=== PATIENT | male | born 1955 | race Hispanic/Latino ===

== ENCOUNTER 2019-06-13 18:17 | Inpatient (IN) | payer SELFPAY ==
[2019-06-13] MEDS ORDERED: ASPIRIN PR ONE (18:33)
[2019-06-13] MEDS ORDERED: NITRO-BID 2% TP ONE (18:34)
[2019-06-13] MEDS ORDERED: SODIUM CHLORIDE FLUSH SYRINGE 10 ML IV PRN (18:36)
[2019-06-13] MEDS ORDERED: PROVENTIL IH PRN (18:36)
[2019-06-13 18:38] LABS: Hematocrit 34.1 % (35.5-45.6); Hemoglobin 10.8 gm/dl (11.8-15.2); Mean Corpuscular HGB Conc 32 % (32-34); Mean Corpuscular Volume 72 fl (84-94); Red Blood Count 4.74 M/mm3 (3.65-5.03)
--- NOTE | 2019-06-13 18:39 | History and Physical Report ---
History of Present Illness Chief complaint: Unresponsive History of present illness: 64 YO Male with unknown PMH presents to ED for evaluation. Pt found down and unresponsive by a family friend who came to the patients home to check on him. Pt was lying on the floor in his home and was unresponsive. EMS notified, and u paresh arrival the patient was found to be unresponsive with EKG changes consistent with STEMI. A code STEMI was called and the patient transported to [facility]. Pt seen and evaluated in ED and found to have Acute Respiratory Failure and was unable to protect his airway. Pt intubated and the Cardiology team was consulted and the patient was taken urgently to oven laborer. No further history obtainable. CT Head, CT Chest, CBC, CMP pending at time of admission. Pt admitted to ICU. No further history obtainable. No prior admission for review. No medication listed for reconciliation at time of admission. Upon return of initial labwork the patient was found to have Qsofa sore of 7 consistent with Sepsis, ARF, Acidosis, Anemia, as well as Encephalopathy. Pulmonary team consulted in ED, nephrology consulted in ED. Past History Past Medical History: No medical history, other (UTO) Past Surgical History: No surgical history, Other (UTO) Social history: no significant social history, other (UTO) Family history: no significant family history, other (UTO) Medications and Allergies Allergies Allergy/AdvReac Type Severity Reaction Status Date / Time Unable to Assess Allergy Unverified 06/13/19 18:37 Review of Systems ROS unobtainable: due to endotracheal tube, due to mental status Exam - Constitutional Vitals: Temp Pulse Resp BP Pulse Ox 98.7 F 107 H 27 H 153/104 100 06/13/19 18:17 06/13/19 18:17 06/13/19 18:17 06/13/19 18:17 06/13/19 18:17 General appearance: Present: severe distress - EENT Eyes: Present: miosis - Neck Neck: Present: supple, normal ROM - Respiratory Respiratory: bilateral: diminished, rhonchi - Cardiovascular Heart Sounds: Present: S1 & S2. Absent: rub, click - Extremities Extremities: pulses symmetrical, No edema Peripheral Pulses: within normal limits - Abdominal General gastrointestinal: Present: soft, non-tender, non-distended, normal bowel sounds Male genitourinary: Present: normal - Integumentary Integumentary: Present: clear, dry, clammy, decreased turgor - Musculoskeletal Musculoskeletal: generalized weakness - Psychiatric Psychiatric: no appropriate mood/affect, no intact judgment & insight, no memory intact - Neurologic Neurologic: moves all extremities, no gait normal Results - Labs CBC & Chem 7: 06/13/19 Unknown 06/13/19 Unknown Assessment and Plan - Patient Problems (1) Sepsis Current Visit: Yes Status: Acute Qualifiers: Sepsis type: sepsis due to unspecified organism Qualified Code(s): A41.9 - Sepsis, unspecified organism Plan to address problem: Admit to ICU, Pt initiated on Sepsis protocol: IVF resuscitation therapy, Iv antibiotic therapy, blood cultures, urinalysis, CBC, CMP, chest x ray, monito uop q shift, The high probability of a clinically significant, sudden or life threatening deterioration of the [neuro, respiratory, cardiac, renal] system(s) required my full and direct attention, intervention and personal management. The aggregate critical care time was [65] minutes. This time is in addition to time spent performing reported procedures but includes the following: [x] Data Review and interpretation [x] Patient assessment and monitoring of vital signs [x] Documentation [x] Medication orders and management (2) Acute respiratory failure Current Visit: Yes Status: Acute Qualifiers: Respiratory failure complication: hypoxia Qualified Code(s): J96.01 - Acute respiratory failure with hypoxia Plan to address problem: Admit to ICU, ABG, CTA chest, chest x ray, (3) Encephalopathy Current Visit: Yes Status: Acute Plan to address problem: CT head, neuro checks, supportive care, (4) STEMI (ST elevation myocardial infarction) Current Visit: Yes Status: Acute Plan to address problem: Cardiology consulted, Pt taken urgently to oven laborer for intervention. (5) Acidosis Current Visit: Yes Status: Acute Plan to address problem: IVF resuscitation therapy,IV bicarbonate therapy, serial lactic acid, repeat bmp. (6) ARF (acute renal failure) with tubular necrosis Current Visit: Yes Status: Acute Plan to address problem: IVF resuscitation therapy, nephrology consulted in ED (7) Rhabdomyolysis Current Visit: Yes Status: Acute Qualifiers: Encounter type: initial encounter Plan to address problem: IVF resuscitation therapy, IV bicarbonate, repeat bmp, monitor serum creatnine, nephrology consulted, repeat CK (8) DVT prophylaxis Current Visit: Yes Status: Acute Plan to address problem: SCD to BLE while in bed, prophylactic lovenox
--- NOTE | 2019-06-13 18:40 | Emergency Department Report ---
HPI - General Time Seen by Provider: 06/13/19 18:22 - HPI HPI: Room 20 The patient is 64-year-old male presenting with a chief complaint of unresponsiveness. Per EMS the last time anyone had seen the patient is normal self was 2 days ago. A friend came over to check on the patient found him unresponsive on the floor. EMS sent and EKG prior to their arrival which showed ST elevation inferiorly and laterally. This EKG was transmitted to the ecological modeler Dr Yanez prior to arrival and a code STEMI was called. Upon arrival to the ED the patient is grossly obtunded without a gag reflex so the decision to intubate using RSI was made Location: [See above] Duration: [See above] Quality: [See above] Severity: [See above] Modifying factors: [see above] Context: [see above] Mode of transportation: [not driving] ED Past Medical Hx - Past Medical History Previous Medical History?: No - Surgical History Past Surgical History?: No - Family History Family history: no significant - Social History Smoking Status: Unknown if ever smoked ED Review of Systems ROS: Stated complaint: UNRESPONSIVE Other details as noted in HPI Comment: Unobtainable due to pts medical conditions Physical Exam - Physical Exam Vital Signs: Vital Signs 06/13/19 18:17 Temperature 98.7 F Pulse Rate 107 H Respiratory 27 H Rate Blood Pressure 153/104 [Right] O2 Sat by Pulse 100 Oximetry Physical Exam: GENERAL: The patient is well-developed well-nourished male lying on stretcher unresponsive. [] HEENT: Normocephalic. Atraumatic. Extraocular motions are intact. Patient has dry mucous membranes. NECK: Supple. Subacute-appearing healing wound to the left side of the neck CHEST/LUNGS: Clear to auscultation. There is no respiratory distress noted. HEART/CARDIOVASCULAR: Regular. There is no tachycardia. There is no gallop rub or murmur. ABDOMEN: Abdomen is soft, nontender. Patient has normal bowel sounds. There is no abdominal distention. SKIN: There is no rash. There is no edema. There is no diaphoresis. NEURO: The patient is unresponsive MUSCULOSKELETAL: There is no evidence of acute injury. ED Course Vital Signs 06/13/19 18:17 Temperature 98.7 F Pulse Rate 107 H Respiratory 27 H Rate Blood Pressure 153/104 [Right] O2 Sat by Pulse 100 Oximetry - Consultations Consultation #1: 06/13/19 18:12 EKG sent to and discussed with the ecological modeler Dr Beau BROWNE Medical Decision Making - Lab Data Result diagrams: 06/13/19 Unknown 06/13/19 Unknown - EKG Data -: EKG Interpreted by Me EKG shows normal: sinus rhythm Rate: normal - EKG Data When compared to previous EKG there are: previous EKG unavailable Interpretation: acute AK (ST elevation in leads 2, 3) - Radiology Data Radiology results: image reviewed (CT head, chest x-ray) interpreted by me: Chest x-ray- ET tube in appropriate position. No focal infiltrates, no pneumothorax - Differential Diagnosis STEMI, ICH Critical care attestation.: If time is entered above; I have spent that time in minutes in the direct care of this critically ill patient, excluding procedure time. ED Disposition Clinical Impression: STEMI (ST elevation myocardial infarction), Altered mental status Disposition: DC-[id number] OP ADMIT IP TO THIS HOSP Is pt being admited?: Yes Does the pt Need Aspirin: Yes Condition: Serious Referrals: TAMMI SCHULTE MD [Primary Care Provider] - 3-5 Days
[2019-06-13] MEDS ORDERED: VASELINE LIP THERAPY TP PRN (18:42)
[2019-06-13] MEDS ORDERED: ARTIFICIAL TEARS OPHTH OINT OU PRN (18:42)
[2019-06-13] MEDS ORDERED: VERSED IV PRN (18:42)
[2019-06-13 18:44] LABS: Red Cell Distribution Width 20.9 % (13.2-15.2)
[2019-06-13] MEDS ORDERED: CALAN ONE (18:47)
[2019-06-13] MEDS ORDERED: SUBLIMAZE ONE (18:47)
[2019-06-13] MEDS ORDERED: HEPARIN 10,000 UNITS/10 ML ONE (18:47)
[2019-06-13] MEDS ORDERED: HEPARIN/NS 5000 UNIT/500ML(CATH LAB) 1,000 ML IR ONE (18:47)
[2019-06-13] MEDS ORDERED: VERSED ONE (18:47)
[2019-06-13] MEDS ORDERED: XYLOCAINE 2% INFILTRATI ONE (18:47)
[2019-06-13 18:48] LABS: Partial Thromboplastin Time 33.6 Sec. (24.2-36.6)
[2019-06-13] MEDS ORDERED: NACL 0.9% 500 ML 500 ML ONE (18:48)
[2019-06-13] MEDS ORDERED: NITROGLYCERIN SYRINGE 3 ML ONE (18:48)
[2019-06-13] MEDS ORDERED: HEPARIN ONE (18:50)
[2019-06-13 18:53] LABS: INR 1.09 (0.87-1.13)
[2019-06-13] MEDS ORDERED: VERSED IV NR ×2 (19:00)
[2019-06-13] MEDS ORDERED: HEPARIN 10,000 UNITS/10 ML IV ONE (19:00)
[2019-06-13] MEDS ORDERED: MIDAZOLAM 100 MG in NACL 0.9% 80 ML IV SCH (19:00)
--- NOTE | 2019-06-13 19:00 | XRay Report ---
CHEST 1 VIEW 06/13/2019 6:34 PM INDICATION / CLINICAL INFORMATION: unresponsive, status post intubation. COMPARISON: None available. FINDINGS: SUPPORT DEVICES: Endotracheal tube has been placed with tip 6.5 cm above the yosef in expected posit ion. HEART / MEDIASTINUM: No significant abnormality. LUNGS / PLEURA: No significant pulmonary or pleural abnormality. No pneumothorax. ADDITIONAL FINDINGS: Defibrillator pad over the upper right hemithorax. IMPRESSION: 1. Endotracheal tube in expected position. Signer Name: Ahmet Jane MD Signed: 06/13/2019 6:55 PM Workstation Name: [id number]
--- NOTE | 2019-06-13 19:05 | Cat Scan Report ---
CT HEAD WITHOUT CONTRAST INDICATION / CLINICAL INFORMATION: AMS. Respiratory failure. Intubated patient. TECHNIQUE: All CT scans at this location are performed using CT dose reduction for ALARA by means of automated e xposure control. COMPARISON: None available. FINDINGS: HEMORRHAGE: A small (7 mm diameter) area of slightly increased attenuation is observed in the inferio r aspect of the right occipital lobe. (Series 2 image 25) This could represent a small parenchymal h emorrhage. A second, smaller (6 mm diameter) area of increased attenuation is seen in the cortex and subcortical white matter of the left frontal lobe approaching the vertex. (Series 2 image 57). No oth er areas of intracranial hemorrhage are identified. There is no indication of subarachnoid hemorrhage . No extra-axial fluid collections are identified. EXTRA-AXIAL SPACES: Cortical sulci, sylvian fissures and basilar cisterns have an unremarkable appear ance. VENTRICULAR SYSTEM: The ventricular system is of normal size and configuration. CEREBRAL PARENCHYMA: No additional areas of abnormal brain parenchymal attenuation are identified. Th ere is no indication of recent infarction. MIDLINE SHIFT OR HERNIATION: There is no mass effect. CEREBELLUM / BRAINSTEM: Brainstem and cerebellum have an unremarkable appearance. INTRACRANIAL VESSELS:No abnormalities are identified on this noncontrast head CT. ORBITS: visualized portions of the orbits have an unremarkable appearance. SOFT TISSUES of HEAD: No significant abnormality. CALVARIUM: Evaluation of bone windows reveals no abnormalities. PARANASAL SINUSES / MASTOID AIR CELLS: Paranasal sinuses are free from inflammatory mucosal disease. Mastoid air cells are normally pneumatized. IMPRESSION: 1. 2 small foci of increased attenuation are identified. These are located in the right occipital lob e and left frontal lobe where small parenchymal hemorrhages are suspected. Is there a history of head trauma 2. No additional abnormalities are identified on head CT without contrast. Signer Name: Danial Dhaliwal MD Signed: 06/13/2019 7:00 PM Workstation Name: [id number]
[2019-06-13] MEDS ORDERED: QUELICIN IV ONE (19:12)
[2019-06-13] MEDS ORDERED: XYLOCAINE CARDIAC IV ONE ×3 (19:13→22:48)
[2019-06-13] MEDS ORDERED: ADRENALIN ONE (19:16)
[2019-06-13] MEDS ORDERED: NACL 0.9% 1000 ML 0 ML ONE (19:16)
[2019-06-13] MEDS ORDERED: ATROPINE 0.1% (CARDIAC) ONE (19:16)
[2019-06-13] MEDS ORDERED: PHENYLEPHRINE/NS Syringe 1,000 MCG/10 ML IV ONE (19:16)
[2019-06-13] MEDS ORDERED: INTROPIN DRIP 800 MG/D5W 250 ML 800 MG/250 ML BAG IV ONE (19:18)
[2019-06-13 19:20] LABS: Basophils % (Manual) 0 % (0.0-1.8); Eosinophils % (Manual) 0 % (0.0-4.3); Total Cells Counted 100
[2019-06-13 19:21] LABS: Platelet Estimate Consistent w Auto
[2019-06-13 19:22] LABS: Anisocytosis 1+; Large Platelets 1+; Poikilocytosis 1+; Target Cells 1+; Toxic Vacuolation 1+
[2019-06-13 19:24] LABS: Chol/HDL Ratio 7.18 %
[2019-06-13 19:33] LABS: Platelet Count 54 K/mm3 (140-440)
[2019-06-13] MEDS ORDERED: NACL 0.9% 1000 ML IV ONE (19:35)
[2019-06-13] MEDS: INTROPIN DRIP 800 MG/D5W 250 ML 800 MG/250 ML BAG IV SCH (20:00)
[2019-06-13] MEDS ORDERED: VANCOMYCIN PHARMACY TO DOSE IV SCH (20:00)
[2019-06-13] MEDS ORDERED: VANCOMYCIN 1,500 MG in NACL 0.9% 500 ML 500 ML IV ONE (21:00)
--- NOTE | 2019-06-13 21:32 | Cardiac Catherization Report ---
CARDIAC CATH Please see my consult for details regarding indication. PROCEDURE IN DETAIL: The patient was brought to the catheterization lab in an urgent fashion. He is intubated and sedated, had a head CT, which preliminary was read as normal. Labs are pending. He is prepped and draped in sterile fashion. An 8 mL of 2% lidocaine used to anesthetize the right groin. A standard 6-Colombian sheath used to cannulate the right common femoral artery via modified Seldinger technique. All exchanges performed to exchange a J-tip guidewire. A JL3.5 catheter used to engage the left main. No dampening or ventricularization. Cineangiography performed in all projections. JR4 catheter was used to cross the aortic valve under fluoroscopic guidance. Left ventriculography was performed in 30 RUEDA and 30 AVELINA projections via hand injections. Catheter flushed. Manual pullback performed with continuous pressure monitoring. Catheter used to engage the right coronary. No dampening or ventricularization. Cineangiography performed in all projections. Catheter removed from the body of wire, sheath removed. Manual pressure used to achieve hemostasis. DATA: Aortic pressure is 100/70, LV pressure is 100, EDP of 15 mmHg, normal sinus rhythm throughout the procedure. CORONARY ANATOMY: Right dominant system. Left ventriculography reveals preserved ejection estimated ejection fraction of 65%. Right coronary is a moderate sized vessel, courses AV groove, distally bifurcates in the posterior and posterolateral branches. No discrete stenoses identified. Left main without significant disease, bifurcates left anterior descending and left circumflex. LAD is a moderate sized vessel, courses anterior intergroove, wraps around the apex, no significant disease. Left circumflex is a moderate sized vessel, courses AV groove. No significant disease. After the cath were notified that the radiologist overread the head CT, which revealed questionable small intracranial hemorrhage. No heparin is given here in the energy systems laboratory director. Sheath was pulled. The patient from a cardiac perspective is stable in sinus rhythm. LAUREN 3 flow throughout the coronary system without obstructive disease and preserved left ventricular systolic performance. CONCLUSIONS: 1. No angiographic evidence of significant epicardial coronary disease in this right dominant system with LAUREN 3 flow throughout the coronary tree. 2. Normal preserved left ventricular systolic performance, estimated ejection fraction of 60-65%. 3. No evidence of aortic stenosis. 4. Normal LVEDP. At this point, sheath was pulled. The patient is clinically stable. Labs reviewed. The patient is also found to have mild anemia and a creatinine of 4, minimal contrast use. Discussed with Dr. Floyd. Hygiene Assistant will be consulted. Respiratory rate is here throughout. He is critically ill. He will need Neurology consultation as well given head CT findings. Also this followed up with Dr. Childress in the Emergency Room. No family is available here. We will follow along with primary team. JOB# [id number] SBM/NTS
[2019-06-13] MEDS ORDERED: PEPCID IV SCH (22:00)
[2019-06-13] MEDS ORDERED: VERSED IV ONE (22:48)
[2019-06-13] MEDS ORDERED: QUELICIN ONE (22:48)
--- NOTE | 2019-06-13 23:24 | Event Note ---
Date: 06/13/19 code Blue Initial rhythm PEA, ACLS protocol initiated There was ROSC He is hypotensive, start dopamine drip Repeat labs reviewed, increase in lactic acid Fluid bolus, increase IV fluid rate, start Zosyn CT abdomen and pelvis was not obtained because the patient has been on stable
[2019-06-13 23:31] LABS: Mean Corpuscular HGB Conc 30 % (32-34); Mean Corpuscular Volume 76 fl (84-94); Red Blood Count 4.72 M/mm3 (3.65-5.03)
[2019-06-14 00:01] LABS: Calcium 7.8 mg/dL (8.4-10.2)
[2019-06-14 00:15] LABS: Hematocrit 35.8 % (35.5-45.6); Hemoglobin 10.7 gm/dl (11.8-15.2); Platelet Count 57 K/mm3 (140-440); Red Cell Distribution Width 21.3 % (13.2-15.2)
[2019-06-14] MEDS: LEVOPHED DRIP 4 MG/NS 250 ML 4 MG/250 ML BAG IV SCH ×5 (00:15→10:00)
--- NOTE | 2019-06-14 00:21 | Event Note ---
ED Radha central line I was asked by the hospitalist Dr. Neeru Tomas to place a central line for vasopressor support [facility] central line note Indication: Vasopressor support Location: Femoral The area of line placement was thoroughly prepared with chlorhexidine then draped using sterile technique. The area was locally anesthetized with lidocaine 1% 3 mL A triple lumen central venous catheter was placed using standard Seldinger technique. There was return of dark nonpulsatile blood from all ports. The catheter was secured in place using adhesive A sterile dressing was placed over the line. The patient tolerated the procedure [well] Complications: First attempt resulted in arterial puncture. Needle was removed and pressure held until hemostatic
[2019-06-14] MEDS: SODIUM CHLORIDE FLUSH SYRINGE 10 ML IV SCH ×2 (00:47→10:00)
[2019-06-14] MEDS ORDERED: NACL 0.9% 1000 ML 2,000 ML IV ONE (01:49)
[2019-06-14] MEDS ORDERED: Vasostrict 20 UNIT in NACL 0.9% 100 ML IV SCH (02:00)
[2019-06-14] MEDS: ZOSYN/NS 2.25 GM/50ML 2.25 GM/50 ML BAG IV SCH ×2 (02:37→10:00)
--- NOTE | 2019-06-14 02:46 | XRay Report ---
CHEST 1 VIEW 06/14/2019 1:58 AM INDICATION / CLINICAL INFORMATION: follow up respiratory failure. COMPARISON: One view of the chest from 06/13/2019. FINDINGS: SUPPORT DEVICES: Stable positioning of the ET tube. HEART / MEDIASTINUM: No significant abnormality. LUNGS / PLEURA: No significant pulmonary or pleural abnormality. No pneumothorax. ADDITIONAL FINDINGS: No significant additional findings. IMPRESSION: No acute findings. Signer Name: Jose Denis MD Signed: 06/14/2019 2:41 AM Workstation Name: [id number]
--- NOTE | 2019-06-14 03:31 | Consultation ---
CARDIOLOGY CONSULTATION REFERRING PHYSICIAN: Dr. Childress in the Emergency Room. REASON FOR CONSULTATION: Advised to bring unresponsive patient with inferolateral ST elevation STEMI protocol. FURTHER INDICATION: The patient is a 64-year-old gentleman who apparently earlier today was found down by his friends, unclear downtime; however, they saw warm food was next to him, suspected it was very recent, questionable minutes. CPR was undertaken and he with return of spontaneous circulation intubated in the Emergency Room. A head CT initially was read as normal. Inferolateral ST elevation. At least 30 minutes of critical care time were spent coordinating cardiac cath plan with CT and so forth. No known medical history, no family with him. PHYSICAL EXAMINATION: VITAL SIGNS: Heart rates in the 95-105 range, sinus tachycardia, again inferolateral ST elevation with minimal reciprocal changes, blood pressure is 110/70, he is afebrile, saturations are 100. Chest x-ray shows a placed ET tube. EKG is aforementioned. Labs are pending. NEUROLOGIC: He is unresponsive, neurologically. HEENT: Sclerae are anicteric. LUNGS: Clear. CARDIOVASCULAR: S1, S2. ABDOMEN: Soft, nontender, nondistended. Normoactive bowel sounds in 4 quadrants. EXTREMITIES: No cyanosis, clubbing, edema. Good peripheral pulses. SKIN: Dry, intact. No rashes. DATA: EKG is aforementioned. Head CT initially was read by the ER physician as unremarkable. Chest x-ray as aforementioned. Labs pending. ASSESSMENT AND PLAN: In summary, this is a 64-year-old gentleman: Found down, return of spontaneous circulation with questionable/probable inferolateral ST elevation without reciprocal changes. STEMI protocol was initiated. The patient to the labor relations director in urgent fashion. Given aspirin per rectum by ER physician. Further plans continued on cath course. JOB# [id number] SBM/NTS
[2019-06-14 03:33] LABS: Band Neutrophils # (Manual) 0.7 K/mm3; Basophils % (Manual) 0 % (0.0-1.8); Eosinophils % (Manual) 0 % (0.0-4.3); Total Cells Counted 100
[2019-06-14 03:34] LABS: Crenated RBC 1+
[2019-06-14 03:56] LABS: Hypochromasia 1+
[2019-06-14 03:57] LABS: Anisocytosis 1+
[2019-06-14 03:58] LABS: Large Platelets 1+
[2019-06-14 03:59] LABS: Platelet Estimate Consistent w Auto
[2019-06-14] MEDS: NACL 0.9% 1000 ML 1,000 ML IV SCH ×2 (04:00→08:00)
[2019-06-14] MEDS: INTROPIN DRIP 800 MG/D5W 250 ML 800 MG/250 ML BAG IV SCH (06:13)
[2019-06-14] MEDS ORDERED: SODIUM BICARBONATE 150 MEQ in D5W 1,000 ML IV SCH (07:30)
[2019-06-14] MEDS ORDERED: NACL 0.9% 500 ML 500 ML IV PRN (09:00)
--- NOTE | 2019-06-14 09:59 | Progress Note ---
Assessment and Plan Pt found down and unresponsive by a family friend. EMS notified, and upon arrival the patient was found to be unresponsive with EKG changes consistent with STEMI. Pt s/p emergent LHC yesterday evening which showed normal coronaries and normal EF 60-65%. Head CT, initially read as normal, shows 2 areas of suspected hemorrhage. He suffered PEA arrest overnight with eventual ROSC obtained. F/u echo and EKG. Cont supportive measures. Wean vasopressors as tolerated. Await neurology recs. Overall poor prognosis. The patient has been seen in conjunction with Dr. Beal who agrees with the assessment and plan of care. - Patient Problems (1) Cardiopulmonary arrest Current Visit: Yes Status: Acute (2) Hemorrhagic cerebrovascular accident (CVA) Current Visit: Yes Status: Acute (3) Sepsis Current Visit: Yes Status: Suspected Qualifiers: Sepsis type: sepsis due to unspecified organism Qualified Code(s): A41.9 - Sepsis, unspecified organism (4) Acidosis Current Visit: Yes Status: Acute (5) Hypotension Current Visit: Yes Status: Acute (6) Abnormal ECG Current Visit: Yes Status: Acute (7) Acute renal failure Current Visit: Yes Status: Acute (8) Rhabdomyolysis Current Visit: Yes Status: Acute Qualifiers: Encounter type: initial encounter (9) Thrombocytopenia Current Visit: Yes Status: Acute (10) Elevated troponin Current Visit: Yes Status: Acute (11) Normal coronary arteries Current Visit: Yes Status: Chronic Subjective Date of service: 06/14/19 Principal diagnosis: cardiac arrest; CVA Interval history: pt remains intubated, nonresponsive. on dopamine and levophed gtts. Objective Last Vital Signs Temp 95.9 F L 06/14/19 08:00 Pulse 86 06/14/19 09:45 Resp 30 H 06/14/19 09:45 BP 151/103 06/14/19 09:45 Pulse Ox 29 L 06/14/19 08:31 - Physical Examination General: Other (intubated, unresponsive) Cardiac: Positive: Reg Rate and Rhythm, S1/S2 Lungs: Positive: Decreased Breath Sounds, Oxygen, Ventilated Respirations Neuro: Positive: Other (intubated, unresponsive) - Labs and Meds Cardiac Enzymes 06/13/19 Range/Units Unknown CK-MB (CK-2) 26.0 H (0.0-4.0) ng/mL Coagulation 06/13/19 Range/Units Unknown PT 13.8 (12.2-14.9) Sec. INR 1.09 (0.87-1.13) APTT 33.6 (24.2-36.6) Sec. Lipids 06/13/19 Range/Units Unknown Triglycerides 234 H (2-149) mg/dL Cholesterol 79 (50-199) mg/dL HDL Cholesterol 11 L (40-59) mg/dL Cholesterol/HDL Ratio 7.18 % CBC 06/13/19 06/13/19 Range/Units 23:22 Unknown WBC 14.8 H 12.2 H (4.5-11.0) K/mm3 RBC 4.72 4.74 (3.65-5.03) M/mm3 Hgb 10.7 L 10.8 L (11.8-15.2) gm/dl Hct 35.8 34.1 L (35.5-45.6) % Plt Count 57 L 54 L (140-440) K/mm3 Comprehensive Metabolic Panel 06/13/19 06/13/19 Range/Units 23:22 Unknown Sodium 139 133 L (137-145) mmol/L Potassium 5.7 H D 3.7 (3.6-5.0) mmol/L Chloride 97.1 L 96.2 L (98-107) mmol/L Carbon Dioxide 15 L 16 L (22-30) mmol/L BUN 83 H 77 H (9-20) mg/dL Creatinine 4.7 H 4.0 H (0.8-1.5) mg/dL Glucose 94 151 H (75-100) mg/dL Calcium 7.8 L 8.0 L (8.4-10.2) mg/dL - Imaging and Cardiology EKG: report reviewed, image reviewed Echo: pending Cardiac cath: report reviewed - Telemetry EKG Rhythm: Sinus Rhythm
[2019-06-14] MEDS ORDERED: PEPCID IV SCH (10:00)
--- NOTE | 2019-06-14 10:23 | Progress Note ---
Assessment and Plan Assessment and plan: Per Admission documentation: 64 YO Male with unknown PMH presents to ED for evaluation. Pt found down and unresponsive by a family friend who came to the patients home to check on him. Pt was lying on the floor in his home and was unresponsive. last time he was seen was 2 days ago. Per story of the friend, patient has been sick for over 10days but refused to go to the doctor and last time they saw the patient was 2 days ago. EMS notified, and upon arrival the patient was found to be unresponsive with EKG changes consistent with STEMI. A code STEMI was called and the patient transported to [facility]. Pt seen and evaluated in ED and found to have Acute Respiratory Failure and was unable to protect his airway. Pt intubated and the Cardiology team was consulted and the patient was taken urgently to [facility]. No further history obtainable. CT Head, CT Chest, CBC, CMP pending at time of admission. Pt admitted to ICU. No further history obtainable. No prior admission for review. No medication listed for reconciliation at time of admission. Upon return of initial labwork the patient was found to have Qsofa sore of 7 consistent with Sepsis, ARF, Acidosis, Anemia, as well as Encephalopathy. Pulmonary team consulted in ED, nephrology consulted in ED. EKG changes consistent with STEMI. Pt s/p emergent LHC yesterday evening which showed normal coronaries and normal EF 60-65%. Head CT, initially read as normal, shows 2 areas of suspected Paranchymal hemorrhage. He suffered PEA arrest overnight with eventual ROSC obtained. CT Head 1. 2 small foci of increased attenuation are identified. These are located in the right occipital lobe and left frontal lobe where small par enchymal hemorrhages are suspected. Is there a history of head trauma 2. No additional abnormalities are identified on head CT without contrast. Since admission the patients lactic acid has worsened, with worsening metabolic acidosis, he has become more hypothermic requiring rewarming. Severe Sepsis with Shock Acute Metabolic Encephalopathy Acute CVA Acute Respiratory failure Right occiptal lobe and left frontal lobe Parachymal hemorrhages Acute Metabolic Acidosis with lactic acidemia Rahabdomylysis Thrombocytopenia Plan Supportive care Give [address] [place] for better I/O in critially ill patient with no noted urine output yet Continue Sodium Bicarb drip as started Change Abx to cefepime and vancomycin-Pharmacy to dose Attempt to reach family ID/NEUROLOGY CONSULT Discussed with ID AND Critical care physician Poor Prognosis The high probability of a clinically significant, sudden or life threatening deterioration of the [neuro, respiratory, cardiac, renal] system(s) required my full and direct attention, intervention and personal management. The aggregate critical care time was [65] minutes. This time is in addition to time spent performing reported procedures but includes the following: [x] Data Review and interpretation [x] Patient assessment and monitoring of vital signs [x] Documentation [x] Medication orders and management Hospitalist Physical - Constitutional Vitals: Temp Pulse Resp BP Pulse Ox 95.9 F L 86 30 H 151/103 29 L 06/14/19 08:00 06/14/19 09:45 06/14/19 09:45 06/14/19 09:45 06/14/19 08:31 General appearance: Present: severe distress Results - Labs CBC & Chem 7: 06/13/19 Unknown 06/13/19 Unknown Labs: Laboratory Last Values WBC 12.2 K/mm3 (4.5-11.0) H 06/13/19 Unknown RBC 4.74 M/mm3 (3.65-5.03) 06/13/19 Unknown Hgb 10.8 gm/dl (11.8-15.2) L 06/13/19 Unknown Hct 34.1 % (35.5-45.6) L 06/13/19 Unknown MCV 72 fl (84-94) L 06/13/19 Unknown MCH 23 pg (28-32) L 06/13/19 Unknown MCHC 32 % (32-34) 06/13/19 Unknown RDW 20.9 % (13.2-15.2) H 06/13/19 Unknown Plt Count 54 K/mm3 (140-440) L 06/13/19 Unknown Add Manual Diff Complete 06/13/19 Unknown Total Counted 100 06/13/19 Unknown Seg Neuts % (Manual) 74.0 % (40.0-70.0) H 06/13/19 Unknown 0 % 06/13/19 Unknown 22.0 % (13.4-35.0) 06/13/19 Unknown Reactive Lymphs % (Man) 0 % 06/13/19 Unknown 4.0 % (0.0-7.3) 06/13/19 Unknown 0 % (0.0-4.3) 06/13/19 Unknown 0 % (0.0-1.8) 06/13/19 Unknown 0 % 06/13/19 Unknown 0 % 06/13/19 Unknown 0 % 06/13/19 Unknown 0 % 06/13/19 Unknown Nucleated RBC % Not Reportable 06/13/19 Unknown Seg Neutrophils # Man 9.0 K/mm3 (1.8-7.7) H 06/13/19 Unknown Band Neutrophils # 0.0 K/mm3 06/13/19 Unknown 2.7 K/mm3 (1.2-5.4) 06/13/19 Unknown Abs React Lymphs (Man) 0.0 K/mm3 06/13/19 Unknown 0.5 K/mm3 (0.0-0.8) 06/13/19 Unknown 0.0 K/mm3 (0.0-0.4) 06/13/19 Unknown 0.0 K/mm3 (0.0-0.1) 06/13/19 Unknown 0.0 K/mm3 06/13/19 Unknown 0.0 K/mm3 06/13/19 Unknown 0.0 K/mm3 06/13/19 Unknown Blast Cells # 0.0 K/mm3 06/13/19 Unknown WBC Morphology Not Reportable 06/13/19 Unknown Hypersegmented Neuts Not Reportable 06/13/19 Unknown Hyposegmented Neuts Not Reportable 06/13/19 Unknown Hypogranular Neuts Not Reportable 06/13/19 Unknown Not Reportable 06/13/19 Unknown Not Reportable 06/13/19 Unknown 1+ 06/13/19 Unknown Not Reportable 06/13/19 Unknown Not Reportable 06/13/19 Unknown Not Reportable 06/13/19 Unknown Consistent w auto 06/13/19 Unknown Not Reportable 06/13/19 Unknown Plt Clumps, EDTA Not Reportable 06/13/19 Unknown 1+ 06/13/19 Unknown Not Reportable 06/13/19 Unknown Not Reportable 06/13/19 Unknown Plt Morphology Comment Not Reportable 06/13/19 Unknown RBC Morphology Not Reportable 06/13/19 Unknown Dimorphic RBCs Not Reportable 06/13/19 Unknown Not Reportable 06/13/19 Unknown Not Reportable 06/13/19 Unknown 1+ 06/13/19 Unknown 1+ 06/13/19 Unknown Not Reportable 06/13/19 Unknown Not Reportable 06/13/19 Unknown Not Reportable 06/13/19 Unknown Not Reportable 06/13/19 Unknown Not Reportable 06/13/19 Unknown 1+ 06/13/19 Unknown Not Reportable 06/13/19 Unknown Not Reportable 06/13/19 Unknown Not Reportable 06/13/19 Unknown Not Reportable 06/13/19 Unknown Not Reportable 06/13/19 Unknown Not Reportable 06/13/19 Unknown Not Reportable 06/13/19 Unknown Not Reportable 06/13/19 Unknown Not Reportable 06/13/19 Unknown Acanthocytes (Spur) Not Reportable 06/13/19 Unknown Rouleaux Not Reportable 06/13/19 Unknown Not Reportable 06/13/19 Unknown Not Reportable 06/13/19 Unknown Not Reportable 06/13/19 Unknown Not Reportable 06/13/19 Unknown Hem Pathologist Commnt No 06/13/19 Unknown PT 13.8 Sec. (12.2-14.9) 06/13/19 Unknown INR 1.09 (0.87-1.13) 06/13/19 Unknown APTT 33.6 Sec. (24.2-36.6) 06/13/19 Unknown POC ABG pH 6.988 (7.35-7.45) L 06/14/19 05:31 POC ABG pCO2 38.6 (35-45) 06/13/19 22:30 POC ABG pO2 210 (80-105) H 06/14/19 05:31 POC ABG HCO3 5.8 (22-26 mml/L) 06/14/19 05:31 POC ABG Total CO2 7 (23-27mmol/L) 06/14/19 05:31 POC ABG O2 Sat 99 06/14/19 05:31 POC ABG Base Excess -26 ((-2) - (+3)mmol/L) 06/14/19 05:31 50 % 06/14/19 05:31 Sodium 133 mmol/L (137-145) L 06/13/19 Unknown Potassium 3.7 mmol/L (3.6-5.0) 06/13/19 Unknown Chloride 96.2 mmol/L (98-107) L 06/13/19 Unknown Carbon Dioxide 16 mmol/L (22-30) L 06/13/19 Unknown 25 mmol/L 06/13/19 Unknown BUN 77 mg/dL (9-20) H 06/13/19 Unknown 4.0 mg/dL (0.8-1.5) H 06/13/19 Unknown Estimated GFR 15 ml/min 06/13/19 Unknown 19 % 06/13/19 Unknown Glucose 151 mg/dL (75-100) H 06/13/19 Unknown POC Glucose 45 (70-105) L 06/13/19 23:17 Lactic Acid 18.80 mmol/L (0.7-2.0) H* 06/14/19 08:57 Calcium 8.0 mg/dL (8.4-10.2) L 06/13/19 Unknown 5003 units/L (55-170) H 06/14/19 04:42 CK-MB (CK-2) 26.0 ng/mL (0.0-4.0) H 06/13/19 Unknown CK-MB (CK-2) Rel Index 0.8 (0-4) 06/13/19 Unknown 0.717 ng/mL (0.00-0.029) H* 06/13/19 Unknown Triglycerides 234 mg/dL (2-149) H 06/13/19 Unknown Cholesterol 79 mg/dL (50-199) 06/13/19 Unknown 7 mg/dL (50-130) L 06/13/19 Unknown 11 mg/dL (40-59) L 06/13/19 Unknown 7.18 % 06/13/19 Unknown Active Medications - Current Medications Current Medications: Generic Name Dose Route Start Last Admin Trade Name Freq PRN Reason Stop Dose Admin Albuterol 2.5 mg 06/13/19 18:36 Proventil IH Q3HRT PRN Shortness Of Breath Famotidine 10 mg 06/14/19 10:00 Pepcid IV BID IRINA Hydrophilic Ointment 1 applic 06/13/19 18:42 Vaseline Lip Therapy TP Q2HR PRN Dry Lips Midazolam HCl 100 mg/ Sodium 100 mls @ 2 mls/hr 06/13/19 19:00 Chloride IV TITR IRINA Protocol 2 MG/HR Sodium Chloride 1,000 mls @ 150 mls/hr 06/13/19 20:00 06/14/19 08:00 Nacl 0.9% 1000 Ml IV 150 mls/hr DIRECT IRINA Administration Norepinephrine 4 mg in 250 mls @ 7.5 mls/hr 06/13/19 23:45 06/14/19 07:30 Levophed Drip 4 Mg/Ns 250 Ml IV 30 mcg/min TITR IRINA 112.5 mls/hr Administration Protocol 2 MCG/MIN Dopamine HCl/Dextrose 800 mg in 250 mls @ 2.664 mls/hr 06/13/19 23:45 06/14/19 08:38 Intropin Drip 800 Mg/D5w 250 Ml IV 18 mcg/kg/min TITR IRINA 23.974 mls/hr Titration Protocol 2 MCG/KG/MIN Piperacillin Sod/Tazobactam Sod 2.25 gm in 50 mls @ 100 mls/hr 06/14/19 02:00 06/14/19 03:07 Zosyn/Ns 2.25 Gm/50ml IV Infused Q8H IRINA Infusion Protocol Vasopressin 20 unit/ Sodium 101 mls @ 9.09 mls/hr 06/14/19 02:00 06/14/19 02:09 Chloride IV 0.03 units/min TITR IRINA 9.09 mls/hr Administration Protocol 0.03 UNITS/MIN Sodium Bicarbonate 150 meq/ 1,150 mls @ 150 mls/hr 06/14/19 07:30 06/14/19 08:29 Dextrose IV 150 mls/hr DIRECT IRINA Administration Sodium Chloride 500 mls @ 1 mls/hr 06/14/19 09:00 06/14/19 09:32 Nacl 0.9% 500 Ml IV 1 mls/hr DIRECT PRN Administration ARTERIAL LINE FLUSH Sodium Chloride 4,000 mls @ 999 mls/hr 06/14/19 10:17 Nacl 0.9% 1000 Ml IV 06/14/19 14:17 BOLUS ONE Midazolam HCl 2 mg 06/13/19 18:42 Versed IV Q10MIN PRN Sedation Multi-Ingred Cream/Lotion/Oil/Oint 1 applic 06/13/19 18:42 Artificial Tears Ophth Oint OU Q4HR PRN Dry Eye(s) Sodium Chloride 10 ml 06/13/19 22:00 06/14/19 00:47 Sodium Chloride Flush Syringe 10 Ml IV 10 ml BID IRINA Administration Sodium Chloride 10 ml 06/13/19 18:36 Sodium Chloride Flush Syringe 10 Ml IV PRN PRN LINE FLUSH
[2019-06-14] MEDS ORDERED: NACL 0.9% 1000 ML 4,000 ML IV ONE (11:17)
--- NOTE | 2019-06-14 11:33 | Consultation ---
History of Present Illness Consult date: 06/14/19 Reason for Consult: coma Chief complaint: coma History of present illness: pt w unknown pmh, found down at home yesterday, unclear down time, per chart he was sick for 10 days, EMS concern w stemi, and pt intubated in ed in concern for airway, coma on arrival, taken to cath normal coronaries and EF 50% PEA arrest last night cpr, ROSC obtained lactic acid elevation w meta. acidosis CT head two small foci of bleed likely VERONICA, trauma, on pressors overnight, cold temp, warming blankets, per nurse no sz, or posturing, no myoclonus eye cloudy, no spont movements, no sedation no CT cervical no LFT elevated WBC, low plt no a.fib coag normal RENETTA elevated Cr. BUN trop elevated FH unobtainable/coma SH unobtainable /coma all: nka Past History Past Medical History: No medical history, other (UTO) Past Surgical History: No surgical history, Other (UTO) Social history: no significant social history, other (UTO) Family history: no significant family history, other (UTO) Medications and Allergies Allergies Allergy/AdvReac Type Severity Reaction Status Date / Time No Known Allergies Allergy Verified 06/14/19 09:46 Home Medications Medication Instructions Recorded Confirmed Last Taken Type No Known Home Medications [No 06/14/19 06/14/19 Unknown History Reported Home Medications] Active Meds: Active Medications Albuterol (Proventil) 2.5 mg IH Q3HRT PRN PRN Reason: Shortness Of Breath Famotidine (Pepcid) 10 mg IV BID IRINA Last Admin: 06/14/19 10:00 Dose: 10 mg Documented by: Hydrophilic Ointment (Vaseline Lip Therapy) 1 applic TP Q2HR PRN PRN Reason: Dry Lips Midazolam HCl 100 mg/ Sodium (Chloride) 100 mls @ 2 mls/hr IV TITR IRINA; Protocol Sodium Chloride (Nacl 0.9% 1000 Ml) 1,000 mls @ 150 mls/hr IV DIRECT IRINA Last Admin: 06/14/19 08:00 Dose: 150 mls/hr Documented by: Norepinephrine (Levophed Drip 4 Mg/Ns 250 Ml) 4 mg in 250 mls @ 7.5 mls/hr IV TITR IRINA; Protocol Last Admin: 06/14/19 07:30 Dose: 30 mcg/min, 112.5 mls/hr Documented by: Dopamine HCl/Dextrose (Intropin Drip 800 Mg/D5w 250 Ml) 800 mg in 250 mls @ 2.664 mls/hr IV TITR IRINA; Protocol Last Titration: 06/14/19 08:38 Dose: 18 mcg/kg/min, 23.974 mls/hr Documented by: Vasopressin 20 unit/ Sodium (Chloride) 101 mls @ 9.09 mls/hr IV TITR IRINA; Protocol Last Admin: 06/14/19 02:09 Dose: 0.03 units/min, 9.09 mls/hr Documented by: Sodium Bicarbonate 150 meq/ (Dextrose) 1,150 mls @ 150 mls/hr IV DIRECT IRINA Last Admin: 06/14/19 08:29 Dose: 150 mls/hr Documented by: Sodium Chloride (Nacl 0.9% 500 Ml) 500 mls @ 1 mls/hr IV DIRECT PRN PRN Reason: ARTERIAL LINE FLUSH Last Admin: 06/14/19 09:32 Dose: 1 mls/hr Documented by: Sodium Chloride (Nacl 0.9% 1000 Ml) 4,000 mls @ 999 mls/hr IV BOLUS ONE Stop: 06/14/19 15:17 Last Admin: 06/14/19 11:00 Dose: 999 mls/hr Documented by: Cefepime HCl (Maxipime/Ns 1 Gm/100 Ml) 1 gm in 100 mls @ 200 mls/hr IV Q12H IRINA; Protocol Midazolam HCl (Versed) 2 mg IV Q10MIN PRN PRN Reason: Sedation Multi-Ingred Cream/Lotion/Oil/Oint (Artificial Tears Ophth Oint) 1 applic OU Q4HR PRN PRN Reason: Dry Eye(s) Sodium Chloride (Sodium Chloride Flush Syringe 10 Ml) 10 ml IV BID IRINA Last Admin: 06/14/19 10:00 Dose: 10 ml Documented by: Sodium Chloride (Sodium Chloride Flush Syringe 10 Ml) 10 ml IV PRN PRN PRN Reason: LINE FLUSH Review of Systems ROS unobtainable: due to endotracheal tube, due to mental status (pt in coma ) Physical Examination - Vital Signs Vital Signs: Vital Signs Temp Pulse Resp BP Pulse Ox 98.7 F 107 H 27 H 153/104 100 06/13/19 18:17 06/13/19 18:17 06/13/19 18:17 06/13/19 18:17 06/13/19 18:17 - Physical Exam Narrative exam: intubated no sedation no extra movements no spont movement no eye opening to verbal tactile stim neck no cleared by CT cervical, unable to fully test dolls and stiffness for suspicion of meningitis (less likely) gag cough intact pupils unresponsive eyes cloudy slight left right head movements prove dolls intact no grimace to nox stim to nares face symm no w/d to pain to all limbs and or upper outer chest there is a slight hand twitch movement to nox stim to R upper outer chest otherwise all limbs are mute tone is down skin pallor abd soft pulses poor x 4 no d/c nose ears, no joint effusion no asymm edema no myoclonus or posturing DTR are trace to all limbs pt appears lifeless Results - Laboratory Findings CBC and BMP: 06/13/19 Unknown 06/13/19 Unknown Abnormal Lab Findings: Abnormal Labs 06/13/19 06/13/19 06/13/19 18:54 19:20 21:30 WBC Hgb Hct MCV MCH MCHC RDW Plt Count Seg Neuts % (Manual) Seg Neutrophils # Man POC ABG pH 7.328 L POC ABG pO2 Sodium Potassium Chloride Carbon Dioxide BUN Creatinine Glucose POC Glucose Lactic Acid 4.50 H* 5.90 H* Calcium Total Creatine Kinase CK-MB (CK-2) Troponin T Triglycerides LDL Cholesterol Direct HDL Cholesterol 06/13/19 06/13/19 06/13/19 22:30 23:17 23:22 WBC 14.8 H Hgb 10.7 L Hct MCV 76 L MCH 23 L MCHC 30 L RDW 21.3 H Plt Count 57 L Seg Neuts % (Manual) Seg Neutrophils # Man 9.5 H POC ABG pH 7.214 L POC ABG pO2 331 H Sodium Potassium Chloride Carbon Dioxide BUN Creatinine Glucose POC Glucose 45 L Lactic Acid Calcium Total Creatine Kinase CK-MB (CK-2) Troponin T Triglycerides LDL Cholesterol Direct HDL Cholesterol 06/13/19 06/13/19 06/13/19 23:22 Unknown Unknown WBC 12.2 H Hgb 10.8 L Hct 34.1 L MCV 72 L MCH 23 L MCHC RDW 20.9 H Plt Count 54 L Seg Neuts % (Manual) 74.0 H Seg Neutrophils # Man 9.0 H POC ABG pH POC ABG pO2 Sodium 133 L Potassium 5.7 H D Chloride 97.1 L 96.2 L Carbon Dioxide 15 L 16 L BUN 83 H 77 H Creatinine 4.7 H 4.0 H Glucose 151 H POC Glucose Lactic Acid Calcium 7.8 L 8.0 L Total Creatine Kinase 3078 H CK-MB (CK-2) 26.0 H Troponin T 1.950 H* D 0.717 H* Triglycerides 234 H LDL Cholesterol Direct 7 L HDL Cholesterol 11 L 06/14/19 06/14/19 06/14/19 00:16 04:42 04:42 WBC Hgb Hct MCV MCH MCHC RDW Plt Count Seg Neuts % (Manual) Seg Neutrophils # Man POC ABG pH POC ABG pO2 Sodium Potassium Chloride Carbon Dioxide BUN Creatinine Glucose POC Glucose Lactic Acid 11.20 H* 14.40 H* Calcium Total Creatine Kinase 5003 H CK-MB (CK-2) Troponin T Triglycerides LDL Cholesterol Direct HDL Cholesterol 06/14/19 06/14/19 06/14/19 05:31 07:10 08:57 WBC Hgb Hct MCV MCH MCHC RDW Plt Count Seg Neuts % (Manual) Seg Neutrophils # Man POC ABG pH 6.988 L POC ABG pO2 210 H Sodium Potassium Chloride Carbon Dioxide BUN Creatinine Glucose POC Glucose Lactic Acid 18.80 H* 18.80 H* Calcium Total Creatine Kinase CK-MB (CK-2) Troponin T Triglycerides LDL Cholesterol Direct HDL Cholesterol Assessment and Plan 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 life support repeat CT head after 24 h from the first CT head obtain next of kin no antiplt or anticoag , low pt and recent TBI avoid sedation follow clinically cont. current management
[2019-06-14] MEDS ORDERED: MAXIPIME/NS 1 GM/100 ML 1 GM/100 ML BAG IV SCH (12:00)
[2019-06-14 12:15] LABS: Albumin 3.2 g/dL (3.9-5)
[2019-06-14] MEDS ORDERED: ADRENALIN ONE (12:39)
[2019-06-14] MEDS ORDERED: D5W (50 ML) IV ONE (12:39)
[2019-06-14] MEDS ORDERED: ADRENALIN IV ONE (12:39)
[2019-06-14] MEDS ORDERED: NACL 0.9% 1000 ML ONE (12:39)
[2019-06-14 12:44] LABS: Bilirubin,Direct 0.5 mg/dL (0-0.2)
--- NOTE | 2019-06-14 13:11 | Consultation ---
History of Present Illness Consult date: 06/14/19 Requesting physician: RANDELL VACA History of present illness: PULMONARY/CCM CONSULT NOTE (Full dictation # [id number]) Please see dictated notes for full details Past History Past Medical History: No medical history, other (UTO) Past Surgical History: No surgical history, Other (UTO) Social history: no significant social history, other (UTO) Family history: no significant family history, other (UTO) Medications and Allergies Allergies Allergy/AdvReac Type Severity Reaction Status Date / Time No Known Allergies Allergy Verified 06/14/19 09:46 Home Medications Medication Instructions Recorded Confirmed Last Taken Type No Known Home Medications [No 06/14/19 06/14/19 Unknown History Reported Home Medications] Active Meds: Active Medications Albuterol (Proventil) 2.5 mg IH Q3HRT PRN PRN Reason: Shortness Of Breath Famotidine (Pepcid) 10 mg IV BID IRINA Last Admin: 06/14/19 10:00 Dose: 10 mg Documented by: Hydrophilic Ointment (Vaseline Lip Therapy) 1 applic TP Q2HR PRN PRN Reason: Dry Lips Midazolam HCl 100 mg/ Sodium (Chloride) 100 mls @ 2 mls/hr IV TITR IRINA; Protocol Sodium Chloride (Nacl 0.9% 1000 Ml) 1,000 mls @ 150 mls/hr IV DIRECT IRINA Last Admin: 06/14/19 08:00 Dose: 150 mls/hr Documented by: Norepinephrine (Levophed Drip 4 Mg/Ns 250 Ml) 4 mg in 250 mls @ 7.5 mls/hr IV TITR IRINA; Protocol Last Admin: 06/14/19 10:00 Dose: 30 mcg/min, 112.5 mls/hr Documented by: Dopamine HCl/Dextrose (Intropin Drip 800 Mg/D5w 250 Ml) 800 mg in 250 mls @ 2.664 mls/hr IV TITR IRINA; Protocol Last Titration: 06/14/19 08:38 Dose: 18 mcg/kg/min, 23.974 mls/hr Documented by: Vasopressin 20 unit/ Sodium (Chloride) 101 mls @ 9.09 mls/hr IV TITR IRINA; Prot ocol Last Admin: 06/14/19 02:09 Dose: 0.03 units/min, 9.09 mls/hr Documented by: Sodium Bicarbonate 150 meq/ (Dextrose) 1,150 mls @ 150 mls/hr IV DIRECT IRINA Last Admin: 06/14/19 08:29 Dose: 150 mls/hr Documented by: Sodium Chloride (Nacl 0.9% 500 Ml) 500 mls @ 1 mls/hr IV DIRECT PRN PRN Reason: ARTERIAL LINE FLUSH Last Admin: 06/14/19 09:32 Dose: 1 mls/hr Documented by: Sodium Chloride (Nacl 0.9% 1000 Ml) 4,000 mls @ 999 mls/hr IV BOLUS ONE Stop: 06/14/19 15:17 Last Admin: 06/14/19 11:00 Dose: 999 mls/hr Documented by: Cefepime HCl (Maxipime/Ns 1 Gm/100 Ml) 1 gm in 100 mls @ 200 mls/hr IV Q12H IRINA; Protocol Midazolam HCl (Versed) 2 mg IV Q10MIN PRN PRN Reason: Sedation Multi-Ingred Cream/Lotion/Oil/Oint (Artificial Tears Ophth Oint) 1 applic OU Q4HR PRN PRN Reason: Dry Eye(s) Sodium Chloride (Sodium Chloride Flush Syringe 10 Ml) 10 ml IV BID IRINA Last Admin: 06/14/19 10:00 Dose: 10 ml Documented by: Sodium Chloride (Sodium Chloride Flush Syringe 10 Ml) 10 ml IV PRN PRN PRN Reason: LINE FLUSH Physical Examination Vital signs: Vital Signs Temp Pulse Resp BP Pulse Ox 98.7 F 107 H 27 H 153/104 100 06/13/19 18:17 06/13/19 18:17 06/13/19 18:17 06/13/19 18:17 06/13/19 18:17 Results - Laboratory Findings CBC and BMP: 06/13/19 Unknown 06/13/19 Unknown ABG POC ABG pH 6.988 (7.35-7.45) L 06/14/19 05:31 POC ABG pO2 210 (80-105) H 06/14/19 05:31 POC ABG HCO3 5.8 (22-26 mml/L) 06/14/19 05:31 POC ABG Total CO2 7 (23-27mmol/L) 06/14/19 05:31 POC ABG O2 Sat 99 06/14/19 05:31 PT/INR, D-dimer PT 13.8 Sec. (12.2-14.9) 06/13/19 Unknown INR 1.09 (0.87-1.13) 06/13/19 Unknown Abnormal lab findings: Abnormal Labs 06/13/19 06/13/19 06/13/19 18:54 19:20 21:30 WBC Hgb Hct MCV MCH MCHC RDW Plt Count Seg Neuts % (Manual) Seg Neutrophils # Man POC ABG pH 7.328 L POC ABG pO2 Sodium Potassium Chloride Carbon Dioxide BUN Creatinine Glucose POC Glucose Lactic Acid 4.50 H* 5.90 H* Calcium Direct Bilirubin AST Alkaline Phosphatase Total Creatine Kinase CK-MB (CK-2) Troponin T Albumin Triglycerides LDL Cholesterol Direct HDL Cholesterol 06/13/19 06/13/19 06/13/19 22:30 23:17 23:22 WBC 14.8 H Hgb 10.7 L Hct MCV 76 L MCH 23 L MCHC 30 L RDW 21.3 H Plt Count 57 L Seg Neuts % (Manual) Seg Neutrophils # Man 9.5 H POC ABG pH 7.214 L POC ABG pO2 331 H Sodium Potassium Chloride Carbon Dioxide BUN Creatinine Glucose POC Glucose 45 L Lactic Acid Calcium Direct Bilirubin AST Alkaline Phosphatase Total Creatine Kinase CK-MB (CK-2) Troponin T Albumin Triglycerides LDL Cholesterol Direct HDL Cholesterol 06/13/19 06/13/19 06/13/19 23:22 Unknown Unknown WBC 12.2 H Hgb 10.8 L Hct 34.1 L MCV 72 L MCH 23 L MCHC RDW 20.9 H Plt Count 54 L Seg Neuts % (Manual) 74.0 H Seg Neutrophils # Man 9.0 H POC ABG pH POC ABG pO2 Sodium 133 L Potassium 5.7 H D Chloride 97.1 L 96.2 L Carbon Dioxide 15 L 16 L BUN 83 H 77 H Creatinine 4.7 H 4.0 H Glucose 151 H POC Glucose Lactic Acid Calcium 7.8 L 8.0 L Direct Bilirubin AST Alkaline Phosphatase Total Creatine Kinase 3078 H CK-MB (CK-2) 26.0 H Troponin T 1.950 H* D 0.717 H* Albumin Triglycerides 234 H LDL Cholesterol Direct 7 L HDL Cholesterol 11 L 06/14/19 06/14/19 06/14/19 00:16 04:42 04:42 WBC Hgb Hct MCV MCH MCHC RDW Plt Count Seg Neuts % (Manual) Seg Neutrophils # Man POC ABG pH POC ABG pO2 Sodium Potassium Chloride Carbon Dioxide BUN Creatinine Glucose POC Glucose Lactic Acid 11.20 H* 14.40 H* Calcium Direct Bilirubin AST Alkaline Phosphatase Total Creatine Kinase 5003 H CK-MB (CK-2) Troponin T Albumin Triglycerides LDL Cholesterol Direct HDL Cholesterol 06/14/19 06/14/19 06/14/19 04:42 05:31 07:10 WBC Hgb Hct MCV MCH MCHC RDW Plt Count Seg Neuts % (Manual) Seg Neutrophils # Man POC ABG pH 6.988 L POC ABG pO2 210 H Sodium Potassium Chloride Carbon Dioxide BUN Creatinine Glucose POC Glucose Lactic Acid 18.80 H* Calcium Direct Bilirubin 0.5 H AST 3069 H Alkaline Phosphatase 135 H Total Creatine Kinase CK-MB (CK-2) Troponin T Albumin 3.2 L Triglycerides LDL Cholesterol Direct HDL Cholesterol 06/14/19 08:57 WBC Hgb Hct MCV MCH MCHC RDW Plt Count Seg Neuts % (Manual) Seg Neutrophils # Man POC ABG pH POC ABG pO2 Sodium Potassium Chloride Carbon Dioxide BUN Creatinine Glucose POC Glucose Lactic Acid 18.80 H* Calcium Direct Bilirubin AST Alkaline Phosphatase Total Creatine Kinase CK-MB (CK-2) Troponin T Albumin Triglycerides LDL Cholesterol Direct HDL Cholesterol
--- NOTE | 2019-06-14 13:17 | Death Summary ---
Summary - Providers Date of service: 06/14/19 Consults: 06/13/19 18:42 Consult to Dietitian/Nutrition [CONS] Routine Physician Instructions: Reason For Exam: Reason for Consult: Evaluate nutritional intake 06/13/19 19:29 Consult to Physician [CONS] Routine Comment: Consulting Provider: SEEMA LAWSON Physician Instructions: Reason For Exam: respiratory failure 06/13/19 21:15 Consult to Physician [CONS] Routine Comment: Consulting Provider: SHANNON JACOBO Physician Instructions: Reason For Exam: RENETTA 06/14/19 06:30 Consult to Wound/ET Nurse [CONS] Routine Reason For Exam: wound eval 06/14/19 09:02 Consult to Physician [CONS] Routine Comment: Consulting Provider: MERCY DACOSTA Physician Instructions: Reason For Exam: CVA 06/14/19 10:28 Consult to Physician [CONS] Routine Comment: Consulting Provider: VIDA VALDES Physician Instructions: Reason For Exam: septic shock Attending: ALEC BATES MD - summary Date of admission: 06/13/19 18:37 Date of : 06/14/19 Reason for admission: Encephalopathy Significant findings: Time of 12:56 Procedures/treatments rendered: 64 YO Male with unknown PMH presents to ED for evaluation. Pt found down and unresponsive by a family friend who came to the patients home to check on him. Pt was lying on the floor in his home and was unresponsive. last time he was seen was 2 days ago. Per story of the friend, patient has been sick for over 10days but refused to go to the doctor and last time they saw the patient was 2 days ago. EMS notified, and upon arrival the patient was found to be unresponsive with EKG changes consistent with STEMI. A code STEMI was called and the patient transported to [facility]. Pt seen and evaluated in ED and found to have Acute Respiratory Failure and was unable to protect his airway. Pt intubated and the Cardiology team was consulted and the patient was taken urgently to blood bank laboratory technician. No further history obtainable. CT Head, CT Chest, CBC, CMP pending at time of admission. Pt admitted to ICU. No further history obtainable. No prior admission for review. No medication listed for reconciliation at time of admission. Upon return of initial labwork the patient was found to have Qsofa sore of 7 consistent with Sepsis, ARF, Acidosis, Anemia, as well as Encephalopathy. Pulmonary team consulted in ED, nephrology consulted in ED. EKG changes consistent with STEMI. Pt s/p emergent LHC yesterday evening which showed normal coronaries and normal EF 60-65%. Head CT, initially read as normal, shows 2 areas of suspected Paranchymal hemorrhage. He suffered PEA arrest overnight with eventual ROSC obtained. CT Head 1. 2 small foci of increased attenuation are identified. These are located in the right occipital lobe and left frontal lobe where small parenchymal hemorrhages are suspected. Is there a history of head trauma 2. No additional abnormalities are identified on head CT without contrast. Patient was seen by Neurology, critical care, ID and nephrology Since admission the patients lactic acid has worsened, with worsening metabolic acidosis, he has become more hypothermic requiring rewarming. patient underwent cardiac cath on admission, ealier hours of the morning the patient had cardiac arrest requiring RESUSCITATION. He later in the morning had another epsiode of cardiac arrest with PEA Despite multiple attempt, bolus of fluid, the patient went into cardiac arrest and ACLS protocol was imitated. 6 doses of Epi was given, sodium bicarb, dextros while all prescribed meds were also ongoing, the patient did not regain spotneouse pulse and . Exam: intubated no sedation no extra movements, Pupil dilated and non reactive no spont movement no eye opening to verbal tactile stim eyes cloudy No heart sound ascultated no spontaneous respiration noted Time of 12:56 Diagnosis Severe Sepsis with Septic shoc Cardiopulmonary ARREST with presumed anoxic brain injury Acute Metabolic Encephalopathy Acute Respiratory failure Right occiptal lobe and left frontal lobe Parachymal hemorrhages Acute Metabolic Acidosis with lactic acidemia Rahabdomylysis Multiorgan failure Thrombocytopenia Small ICH likely secondary to Trauma Hypothermia
[2019-06-14] MEDS ORDERED: MAXIPIME/NS 2 GM/100 ML 2 GM/100 ML BAG IV SCH (14:00)
[2019-06-14 18:41] VITALS: BP 110/40
--- NOTE | 2019-06-15 13:47 | Consultation ---
PULMONARY CRITICAL CARE CONSULTATION CONSULTING PHYSICIAN: Apparently was Dr. Floyd REASON FOR CONSULTATION: Acute hypoxemic respiratory failure. CHIEF COMPLAINT AND HISTORY OF PRESENT ILLNESS: The patient is a 64-year-old male with unknown past medical history, came to the Emergency Room after being found down unresponsive by the family. He reportedly had been not himself in the preceding few days. EKG done by Emergency Medical Service en route revealed a ST elevation AK. Code STEMI was called. He was intubated in the ER, urgently taken to the laborer carpentry dock, and it seems like laborer carpentry dock was relatively uneventful. He had a cath procedure and as far as I can tell from the report there was no angiographic evidence of significant disease. He had a normal EF with a normal left ventricular end-diastolic pressure. Post-procedure, he was brought into the Emergency Room. At around 11:00 p.m., around midnight, last night; a code blue was called. His initial rhythm was pulseless electrical activity. He did respond to ACLS protocol and CPR with return of spontaneous circulation. I was called an arterial blood gas on this gentleman earlier today with a pH of about 6.99. It was mainly a metabolic acidosis we are dealing with. I had earlier been called a gas with a pH of 7.21 on. At that time, orders were made given to increase the minute ventilation to compensate as best we could while further bicarbonate resuscitation was ongoing. When I stopped by to see him this morning, we were finally beginning to citrus picker some blood pressures; pulse actually felt rather not good; and he, however, remained nonresponsive on the mechanical ventilator. I do not have any history of vomiting or overt aspiration. With regards to the patient's tobacco use/abuse history, that history is unclear, unable to obtain. There is no family. The above is as much of the history of presentation as I have. PAST MEDICAL HISTORY: Unknown. PAST SURGICAL HISTORY: Unknown. MEDICATIONS: He was on at the time I stopped by to see him according to the medication administration record included the following: Albuterol nebulizer treatments q.3 hours p.r.n., cefepime 1 gram IV q.12. Dopamine drip was going at 20 mcg/kg per minute. Levophed was going at 30 mcg/min. Pepcid 10 mg IV b.i.d. Versed drip had been ordered earlier, but was not running at the time I saw him. Vasopressin was going at 0.03 units per minute. ALLERGIES: No known drug allergies. DIET: Well-built gentleman, acute weight loss or gain history is unknown. FAMILY AND SOCIAL HISTORY: Unknown. There is no family present unfortunately. REVIEW OF SYSTEMS: Unobtainable secondary to his medical and mental condition. Since he has been here, no gross hematochezia or melena, no gross hematuria, no hematemesis, no bloody tracheal secretions, no witnessed seizures. PHYSICAL EXAMINATION: VITAL SIGNS: At presentation in the Emergency Room revealed vital signs shows that he was afebrile, temperature 98.7 degrees Fahrenheit with a pulse of 107, respiratory rate of 27, blood pressure 153/104, O2 sats 100%, inspired oxygen concentration was not recorded. When I stopped by to see him, he was on the mechanical ventilator, assist control mode of ventilation, tidal volume 500, rate of 30 and a PEEP of 6, and at that time 50% FiO2. GENERAL: Elderly looking male. Normocephalic, atraumatic. Resting on the mechanical ventilator, really riding the set rate without significant patient ventilator dyssynchrony. HEAD, EYES, EARS, NOSE, AND THROAT: He was anicteric. No conjunctival erythema. Oropharynx was moist. ET tube was about 24 cm at the lips. No gross jugular venous distention. Grossly, no palpable lymph nodes in the supraclavicular or submandibular lymph node chains. No thyromegaly. LUNGS: Auscultation of both lung rangel really unremarkable. He had some scant bibasilar rhonchi, no active wheezing. HEART: Heart sounds 1 and 2 were heard. They were regular in rate and rhythm at the time of my evaluation without overt rubs or murmurs. ABDOMEN: Soft. Bowel sounds are positive, but hypoactive, nontender. No palpable hepatosplenomegaly. EXTREMITIES: Without overt digital clubbing or cyanosis. He had a dressing over the right groin area, where he had his cath introducer placed. Pedal pulses were weak bilaterally. He was beginning to show mottling of both lower extremities. NEUROLOGIC: Pupils dilated, fixed around 7 mm, nonreactive to light. Extraocular muscle movements could not be assessed. The skin was of poor turgor. He had severe mottling to the extremities. No decubitus rash, otherwise. LABORATORY DATA: From my review are as follows: Admission white cell count 14,800, hemoglobin 10.7, hematocrit 35.8, platelet count of 57, 5% band neutrophils. INR 1.09. Arterial blood gas at presentation showed a pH of 7.33, pCO2 of 38, pO2 was pending at the time that was on 100% FiO2. Earlier today, pH was 6.99 with a pCO2 not reported and a pO2 of 210 on 50% FiO2 and the above-mentioned vent settings. Admission sodium was 139, potassium 5.7, chloride 97, bicarbonate 15, BUN 83, creatinine 4.7, glucose was 45. Lactic acid level was 4.5, is up to 18.8 this morning. CPK was 3078 at presentation. Troponin 1.95. It is unclear if that was before the cath or after the cath. LDL cholesterol was 7.0. Blood cultures, tracheal aspirate no growth to date. DIAGNOSTIC DATA: A CT scan of the head was done at presentation. It reported two small foci of increased attenuation located in the right occipital lobe and left frontal lobe where small parenchymal hemorrhages are suspected. Otherwise, no acute process. A chest x-ray was actually unremarkable. His lungs were clear bilaterally. Endotracheal tube was in good position, tip around the level of the aortic knob. No gross pneumothorax, no gross bony fracture that I could see. ASSESSMENT AND PLAN: 1. Severe sepsis with shock. 2. Acute hypoxemic respiratory failure. 3. Severe metabolic acidosis. 4. Non-ST elevation myocardial infarction. 5. Acute encephalopathy. 6. Acute kidney injury, possibly on chronic. 7. Rhabdomyolysis. 8. Anemia that is microcytic. 9. Lactic acidosis. 10. Elevated serum troponins. PLAN: The gentleman is very, very sick and has a very, very poor prognosis. He is currently on 3 vasopressors maxed out. I do feel that if we can get his pH a little bit better perhaps we can begin to improve his outcomes. He has received supplemental bicarbonate about 3 amps IV push and is now D5W drip with 3 amps of bicarbonate per liter going at about 150 mL per hour. We will continue empiric broad-spectrum antibiotics. He is on cefepime and I believe he received a dose of vancomycin earlier, he did. The neurological evaluation is nonreassuring. In fact, I fear that we may be brain at this point, but for now, we will keep him on full mechanical ventilatory support. Ventilator-associated pneumonia bundle has been instituted. Aspiration precautions will be maintained. Bronchodilators will be scheduled. Oxygen will be weaned to keep sats greater than or equal to over 90%. I will be trying to place a femoral arterial line so that we can get constant blood pressures as the BP cuff is not picking up pressures well, is picking them up erratically. Neurology evaluation will be of benefit. We will hold on any anticoagulation at this time in light of possible intracranial bleeding. He will remain n.p.o. in the short time. Nephrology consultation will also be placed. He will be placed on GI prophylaxis, which is appropriate. DVT prophylaxis will be via SCDs. We will first of all evaluate for possible venous thromboembolic phenomenon. Hyperkalemia management will be deferred to the esthetician spa. He is going to be on GI and DVT prophylaxis. Flu and pneumonia vaccination will be addressed per protocol. Thank you very much for the consult, Dr. Floyd. We will follow along and make further recommendations as picture progresses/becomes clearer. JOB# [id number] SRAVANI/ELMIRA
== END 2019-06-14 13:00 | DRG 871 ==
LOC: ED 18:17 → CC1 18:37
PROVIDERS: ADMIT Internal Medicine; ATTEND Internal Medicine
PROC: 4A023N7 Measurement of Cardiac Sampling and Pressure, Left Heart, Percutaneous Approach (ICD-10-PCS; principal; 2019-06-13)
PROC: B2111ZZ Fluoroscopy of Multiple Coronary Arteries using Low Osmolar Contrast (ICD-10-PCS; 2019-06-13)
PROC: B2151ZZ Fluoroscopy of Left Heart using Low Osmolar Contrast (ICD-10-PCS; 2019-06-13)
PROC: 5A1935Z Respiratory Ventilation, Less than 24 Consecutive Hours (ICD-10-PCS; 2019-06-13)
PROC: 0BH17EZ Insertion of Endotracheal Airway into Trachea, Via Natural or Artificial Opening (ICD-10-PCS; 2019-06-13)
PROC: 4A033R1 Measurement of Arterial Saturation, Peripheral, Percutaneous Approach (ICD-10-PCS; 2019-06-13)
PROC: 03HY32Z Insertion of Monitoring Device into Upper Artery, Percutaneous Approach (ICD-10-PCS; 2019-06-14)
PROC: 06HY33Z Insertion of Infusion Device into Lower Vein, Percutaneous Approach (ICD-10-PCS; 2019-06-14)
DX: A41.9 Sepsis, unspecified organism (principal); J96.01 Acute respiratory failure with hypoxia; N17.0 Acute kidney failure with tubular necrosis; R65.21 Severe sepsis with septic shock; G93.40 Encephalopathy, unspecified; E87.2 Acidosis; M62.82 Rhabdomyolysis; G93.1 Anoxic brain damage, not elsewhere classified; D50.9 Iron deficiency anemia, unspecified; I46.9 Cardiac arrest, cause unspecified; D69.6 Thrombocytopenia, unspecified; S06.2X0A Diffuse traumatic brain injury without loss of consciousness, initial encounter; X58.XXXA Exposure to other specified factors, initial encounter; Y93.89 Activity, other specified; Y92.89 Other specified places as the place of occurrence of the external cause; Y99.8 Other external cause status
CPT/HCPCS: 36415; 36600; 70450; 71045; 80048; 80061; 80076; 82140; 82550; 82553; 82803; 82962; 84484; 85007; 85025; 85347; 85610; 85730; 87040; 87070; 87186; 87205; 93005; 93010; 93458; 94003; 95819; C1894; J0171; J0330; J0461; J0692; J1265; J1644; J2001; J2250; J2370; J2543; J3010; J3370; J7030; J7040; J7070; Q9967